=== PATIENT | female | born 1965 | race Two or more races ===

== ENCOUNTER → 2020-11-02 | Day surgery (SDC) | payer OTHER ==
--- NOTE | 2020-11-02 11:57 | RAD REPORT ---
EXAM DESCRIPTION: US - Guided FNA Non Breast - 11/02/2020 10:55 am CLINICAL HISTORY: E04.1 COMPARISON: No comparisons FINDINGS: Preoperative diagnosis: Left thyroid nodule. Post operative diagnosis: Same. Conscious Sedation: None Fluoroscopy time: None Contrast used: None Estimated blood loss: Minimal Specimens:5 x 25 gauge FNA specimens The left neck was prepped and draped in the usual sterile fashion. 1% lidocaine was infiltrated into the subcutaneous tissues for local anesthesia. Real time ultrasound scanning of the left thyroid demo nstrated an echogenic 2 cm nodule. Under ultrasound guidance, using multiple 25 gauge FNA needles, 5 specimens were obtained of this lesion and sent to pathology for evaluation. There were no complicati ons. IMPRESSION: Successful ultrasound-guided left thyroid nodule FNA procedure.
== END ==
LOC: FNA 09:27
PROVIDERS: ATTEND General Practice
PROC: 0GJK3ZZ Inspection of Thyroid Gland, Percutaneous Approach (ICD-10-PCS; principal; 2020-11-02)
DX: E04.1 Nontoxic single thyroid nodule (principal)
CPT/HCPCS: 88162; 88305

== ENCOUNTER 2023-05-22 07:21 | Day surgery (SDC) | payer OTHER ==
[2023-05-22] MEDS ORDERED: NA CHLORIDE 0.9% 250 ML ONE ×2 (07:45→10:04)
[2023-05-22 09:22] VITALS: BP 114/70; TEMP 98.6; O2SAT 99; BMI 21.1
== END 2023-05-22 13:31 | disposition home or self-care (01) ==
LOC: DS 07:21
PROVIDERS: ATTEND Internal Medicine Gastroenterology
DX: D50.9 Iron deficiency anemia, unspecified (principal)
CPT/HCPCS: 36415; 86900; 86850; 86901; 86920 ×2; 85018; 86922 ×2; 36430; P9016 ×2; J7050 ×2